=== PATIENT | female | born 1945 | race Caucasian/White ===

== ENCOUNTER 2019-04-23 07:25 | Day surgery (SDC) | payer MEDICARE, BC ==
[2019-04-23] MEDS ORDERED: Neostigmine Methylsulfate 10 MG/10 ML MDV IVPUSH ONE (07:26)
[2019-04-23] MEDS ORDERED: Lidocaine 2% 100 MG/5 ML Syringe IVPUSH ONE (07:26)
[2019-04-23] MEDS ORDERED: Dexamethasone 4 MG/ML 5 ML MDV IVPUSH ONE (07:26)
[2019-04-23] MEDS ORDERED: Glycopyrrolate 0.2 MG/ML 5 ML MDV IV ONE (07:26)
[2019-04-23] MEDS ORDERED: Propofol 200 MG/20 ML SDV IV ONE (07:26)
[2019-04-23] MEDS ORDERED: Ketorolac 30 MG/ML SDV IVPUSH ONE (07:26)
[2019-04-23] MEDS ORDERED: Succinylcholine 200 MG/10 ML MDV IV ONE (07:26)
[2019-04-23] MEDS ORDERED: Rocuronium 100 MG/10 ML MDV IV ONE (07:26)
[2019-04-23] MEDS ORDERED: fentaNYL 100 MCG/2 ML SDV IV ONE (07:26)
[2019-04-23] MEDS ORDERED: Ondansetron 4 MG/2 ML SDV IVPUSH ONE ×2 (07:26→12:39)
[2019-04-23] MEDS ORDERED: Sodium Chloride 0.9% 10 ML Syringe FLUSH PRN (07:30)
[2019-04-23] MEDS ORDERED: Lactated Ringers 1,000 ML IV SCH (07:30)
[2019-04-23] MEDS ORDERED: ceFAZolin 2 GM in Premix Bag 1 BAG IV ONE (08:45)
--- NOTE | 2019-04-23 09:03 | PCM.PN ---
- General Info Date of Service: 04/23/19 - Review of Systems Systems Review Comment:: 74 y/o female with known cholelithiasis and RUQ pain here for cholecystectomy. She is medically stable to proceed. Indications, options and risks have been discussed with the patient and she agrees to proceed. Her recent H and P is reviewed and no significant changes are noted. - Patient Data Vitals - Most Recent: Last Vital Signs Temp 98.0 F 04/23/19 08:05 Pulse 89 04/23/19 08:05 Resp 16 04/23/19 08:05 BP 167/83 H 04/23/19 08:05 Pulse Ox 96 04/23/19 08:05 Weight - Most Recent: 185 lb Lab Results Last 24 Hours: Laboratory Results - last 24 hr 04/23/19 Range/Units 08:24 POC Glucose 182 H (80-116) mg/dL Med Orders - Current: Current Medications Cefazolin Sodium/Dextrose 2 gm (/ Premix) 50 mls @ 100 mls/hr IV ONETIME ONE Stop: 04/23/19 09:14 Last Admin: 04/23/19 08:19 Dose: 100 mls/hr Lactated Ringer's (Ringers, Lactated) 1,000 mls @ 125 mls/hr IV ASDIRECTED RICHI Last Admin: 04/23/19 08:19 Dose: 125 mls/hr Sodium Chloride (Saline Flush) 10 ml FLUSH ASDIRECTED PRN PRN Reason: Keep Vein Open - Problem List Review Problem List Initiated/Reviewed/Updated: Yes - My Orders Last 24 Hours: My Active Orders 04/22/19 Dinner Nothing Per Oral Diet [DIET] 04/23/19 07:30 Patient Status [ADT] Routine Blood Glucose Check, Bedside [RC] ONETIME Patient to Empty Bladder [RC] ASDIRECTED RT Incentive Spirometry [RC] ASDIRECTED Verify Patient Consent Obtain [RC] ASDIRECTED Lactated Ringers [Ringers, Lactated] 1,000 ml IV ASDIRECTED Sodium Chloride 0.9% [Saline Flush] 10 ml FLUSH ASDIRECTED PRN Peripheral IV Insertion Adult [OM.PC] Routine Sequential Compression Device [OM.PC] Routine 04/23/19 08:45 ceFAZolin [Ancef] 2 gm Premix Bag 1 bag IV ONETIME - Assessment Assessment:: Symptomatic Cholelithiasis - Plan Plan:: Cholecystectomy
[2019-04-23] MEDS ORDERED: Bupivacaine 0.5%/EPINEPHrine 1:200,000 50 ML MDV INJECT ONE (09:46)
--- NOTE | 2019-04-23 10:53 | PCM.OPNOTE ---
- General Post-Op/Procedure Note Date of Surgery/Procedure: 04/23/19 Operative Procedure(s): Cholecystectomy Findings: Chronically inflamed gallbladder with large stone Pre Op Diagnosis: Symptomatic Cholelithiasis Post-Op Diagnosis: Chronic Cholecystitis with Cholelithiasis Anesthesia Technique: General ET Tube Primary Surgeon: Jin Dacosta Pathology: Gallbladder with stone Output, Urine Amount: 0 EBL in mLs: 20 Complications: None Condition: Good
--- NOTE | 2019-04-23 12:01 | OR ---
DATE OF OPERATION: 04/23/2019 SURGEON: Jin Dacosta MD PREOPERATIVE DIAGNOSIS: Symptomatic cholelithiasis. POSTOPERATIVE DIAGNOSIS: Chronic cholecystitis with cholelithiasis. OPERATION PERFORMED: Laparoscopic cholecystectomy. INDICATIONS FOR SURGERY: This 74-year-old female has been having symptoms of right upper quadrant abdominal pain for the last several weeks. Workup has identified by ultrasound cholelithiasis which is felt to be the source of her symptoms and she comes for cholecystectomy. FINDINGS: The patient's gallbladder does show evidence of chronic inflammation. There is some scarring of the tissue adhering it to the gallbladder. There is small amount of edema in the tissues here. There were adhesions to the undersurface of the gallbladder consistent with previous attacks. The gallbladder contains a single large stone. The adjacent liver and other intraabdominal organs appear normal as viewed laparoscopically. PROCEDURE IN DETAIL: The patient was taken to the operating room. She was given general endotracheal anesthesia and her abdomen was sterilely prepped and draped. A supraumbilical stab wound incision was made. Through this, a Veress needle was inserted and pneumoperitoneum via this needle to a pressure of 15 mmHg was achieved with carbon dioxide. The Veress needle was then replaced with a 12 mm trocar into which the 5 mm variable angled laparoscopic camera was inserted. Under direct visualization, a 5 mm trocar was placed in the subxiphoid midline and 5 mm trocars were placed in 2 areas of the right abdomen. All trocar sites were infiltrated with Marcaine prior to incision. Intra- abdominal inspection was carried out and attention was turned to the gallbladder. Careful blunt and sharp dissection were used to free the adhesions from the undersurface of the liver. Sharp dissection was used to divide filmy adhesions between the gallbladder and the duodenum, allowing complete exposure of the lower part of the gallbladder and cystic duct region. The fatty tissue and peritoneum overlying the cystic duct and cystic artery were carefully cleared, and with careful dissection, the cystic duct was clearly identified and then the cystic artery was also clearly identified. It was doubly clipped and divided near the gallbladder. The triangle of Calot was completely cleared, and after the cystic duct had been clearly and positively identified, it was milked and doubly clipped and divided near the gallbladder with great care being used to avoid injury to the common bile duct. The gallbladder was then dissected free from the undersurface of the liver using the hook cautery device. Once the gallbladder been completely freed, it was extracted through the umbilical trocar site. This did require opening the gallbladder extra-abdominally and extracting the large stone and then the gallbladder. Reinspection of the gallbladder bed showed good hemostasis to be maintained. Copious irrigation of the operative region was performed. With no sign of any bleeding or any other complication, the trocars were removed and the pneumoperitoneum was evacuated. The fascia of the umbilical trocar site was closed with a [id number] 0 Vicryl suture. Wounds were irrigated with Betadine and saline solution. Skin incisions approximated with interrupted 4-0 Vicryl in a subcuticular stitch. Steri-Strips and benzoin were applied followed by antibiotic ointment and sterile dressings. The patient was awakened, extubated, and taken from the operating room in satisfactory condition. ESTIMATED BLOOD LOSS: 20 mL. COMPLICATIONS: None. PROGNOSIS: Good. /[id number] ANNETTE/AYLA
== END 2019-04-23 13:21 | disposition home or self-care (01) ==
LOC: FB.SDS 07:25
PROVIDERS: ATTEND Surgery
DX: K80.10 Calculus of gallbladder with chronic cholecystitis without obstruction (principal); K82.8 Other specified diseases of gallbladder; I10 Essential (primary) hypertension; E11.9 Type 2 diabetes mellitus without complications; F17.210 Nicotine dependence, cigarettes, uncomplicated; G47.00 Insomnia, unspecified; Z91.09 Other allergy status, other than to drugs and biological substances; Z79.4 Long term (current) use of insulin; Z79.82 Long term (current) use of aspirin; Z79.899 Other long term (current) drug therapy
CPT/HCPCS: 00790; 47562; 82962; J0330; J0690; J1100; J1885; J2001; J2405; J2704; J2710; J3010; J3490; J7120; 88304